=== PATIENT | male | born 1945 | race African-American/Black ===

== ENCOUNTER 2020-04-13 14:02 | Outpatient (RCR) | payer OTHER | END 2020-04-18 | LOC: RESP 14:02 | DX: R06.00 Dyspnea, unspecified (principal); J44.9 Chronic obstructive pulmonary disease, unspecified ==

== ENCOUNTER 2020-05-18 13:53 | Outpatient (RCR) | payer OTHER | END 2020-05-19 | LOC: RESP 13:53 | DX: J44.9 Chronic obstructive pulmonary disease, unspecified (principal); I10 Essential (primary) hypertension; K21.9 Gastro-esophageal reflux disease without esophagitis; Z85.46 Personal history of malignant neoplasm of prostate | CPT/HCPCS: G0238 ×4; G0424 ×4 ==

== ENCOUNTER 2020-05-30 13:53 | Outpatient (RCR) | payer OTHER | END 2020-06-19 | LOC: RESP 13:53 | DX: J44.9 Chronic obstructive pulmonary disease, unspecified (principal); I10 Essential (primary) hypertension; Z85.46 Personal history of malignant neoplasm of prostate; Z87.891 Personal history of nicotine dependence | CPT/HCPCS: G0238 ×4; G0424 ×4 ==

== ENCOUNTER 2020-07-13 13:51 | Outpatient (RCR) | payer OTHER | END 2020-07-17 | LOC: RESP 13:51 | DX: J44.9 Chronic obstructive pulmonary disease, unspecified (principal); I10 Essential (primary) hypertension; K21.9 Gastro-esophageal reflux disease without esophagitis | CPT/HCPCS: G0238; G0424 ==

== ENCOUNTER → 2020-08-17 | Outpatient (RCR) | payer OTHER | LOC: RESP 07-20 13:56 | DX: J44.9 Chronic obstructive pulmonary disease, unspecified (principal) | CPT/HCPCS: G0238 ×9; G0424 ×9 ==

== ENCOUNTER 2020-09-14 14:00 | Outpatient (RCR) | payer OTHER | END 2020-09-16 | LOC: RESP 14:00 | PROVIDERS: ATTEND Family Medicine | DX: J44.9 Chronic obstructive pulmonary disease, unspecified (principal); R06.00 Dyspnea, unspecified | CPT/HCPCS: G0238 ×5; G0424 ×5 ==